=== PATIENT | male | born 1990 | race American Indian/Alaskan Native ===

== ENCOUNTER 2018-11-03 02:33 | Emergency (ER) | payer SELFPAY | END 2018-11-03 07:15 | disposition left against medical advice (07) | LOC: ED 02:33 | DX: Z00.8 Encounter for other general examination (principal); Z53.21 Procedure and treatment not carried out due to patient leaving prior to being seen by health care provider ==

== ENCOUNTER 2018-11-03 05:33 | Emergency (ER) | payer OTHER ==
[2018-11-03 05:45] VITALS: BP 142/94
--- NOTE | 2018-11-03 08:59 | Emergency Department Report ---
ED General Adult HPI - General Chief complaint: Medical Clearance Stated complaint: HYPOTHERMIA Time Seen by Provider: 11/03/18 08:22 Source: patient Mode of arrival: Ambulatory Limitations: No Limitations - History of Present Illness Initial comments: This is a 28-year-old male nontoxic, well nourished in appearance, no acute signs of distress presents to the ED with c/o of "hyperthermia". P atient stated that he was outside and feels like his temperature is significantly decreased. Patient denies any psychosis, hearing voices, confusion, lethargic, chest pain, shortness of breath, headache, stiff neck, numbness, tingling. Patient denies any suicidal or homicidal ideation. Patient denies any drug allergies significant past medical history. Radiation: non-radiation Severity scale (0 -10): 0 Improves with: none Worsens with: none Associated Symptoms: denies other symptoms. denies: confusion, chest pain, cough, diaphoresis, fever/chills, headaches, loss of appetite, malaise, nausea/vomiting, rash, seizure, shortness of breath, syncope, weakness Treatments Prior to Arrival: none ED Review of Systems ROS: Stated complaint: HYPOTHERMIA Other details as noted in HPI Constitutional: denies: chills, fever Eyes: denies: eye pain, eye discharge, vision change ENT: denies: ear pain, throat pain Respiratory: denies: cough, shortness of breath, wheezing Cardiovascular: denies: chest pain, palpitations Endocrine: no symptoms reported Gastrointestinal: denies: abdominal pain, nausea, diarrhea Genitourinary: denies: urgency, dysuria Musculoskeletal: denies: back pain, joint swelling, arthralgia Skin: denies: rash, lesions Neurological: denies: headache, weakness, paresthesias Psychiatric: denies: anxiety, depression Hematological/Lymphatic: denies: easy bleeding, easy bruising ED Past Medical Hx - Past Medical History Previous Medical History?: No - Surgical History Past Surgical History?: No - Social History Smoking Status: Never Smoker Substance Use Type: None ED Physical Exam - General Limitations: No Limitations General appearance: alert, in no apparent distress - Head Head exam: Present: atraumatic, normocephalic - Eye Eye exam: Present: normal appearance - ENT ENT exam: Present: mucous membranes moist - Neck Neck exam: Present: normal inspection, full ROM. Absent: tenderness, meningismus, lymphadenopathy - Respiratory Respiratory exam: Present: normal lung sounds bilaterally. Absent: respiratory distress - Cardiovascular Cardiovascular Exam: Present: regular rate, normal rhythm. Absent: diastolic murmur - GI/Abdominal GI/Abdominal exam: Present: soft, normal bowel sounds - Rectal Rectal exam: Present: deferred - Extremities Exam Extremities exam: Present: normal inspection, full ROM - Back Exam Back exam: Present: normal inspection, full ROM - Neurological Exam Neurological exam: Present: alert, oriented X3, normal gait - Psychiatric Psychiatric exam: Present: normal affect, normal mood. Absent: depressed, agitated, anxious, flat affect, manic, homicidal ideation, suicidal ideation - Skin Skin exam: Present: warm, dry, intact, normal color. Absent: rash ED Course Vital Signs 11/03/18 05:43 Temperature 97.8 F Pulse Rate 82 Respiratory 18 Rate Blood Pressure 142/94 O2 Sat by Pulse 100 Oximetry - Reevaluation(s) Reevaluation #1: 11/03/18 08:57 Patient is speaking in full sentences with no signs of distress noted. ED Medical Decision Making - Medical Decision Making This is a 28-year-old male who presents with complaint of feeling hypothermia. Upon examination patient is stable. Vital signs are stable. I did order some laboratory work the patient refused. Patient was educated and instructed of my concerns and need for blood work patient refused. Patient had signed out AGAINST MEDICAL ADVICE. Patient was strictly instructed to return to emergency room if symptoms worsen or continue. Patient was given a referral. At time of discharge, the patient does not seem toxic or ill in appearance. No acute signs of distress noted. Patient agrees to discharge treatment plan of care. No further questions noted by the patient. Critical care attestation.: If time is entered above; I have spent that time in minutes in the direct care of this critically ill patient, excluding procedure time. ED Disposition Clinical Impression: Feeling worried Disposition: DC-07 LEFT AGAINST MED ADVICE Is pt being admited?: No Does the pt Need Aspirin: No Condition: Undetermined Additional Instructions: Your condition may be serious as instructed and educated today in the ER but you decided to leave AGAINST MEDICAL ADVICE. It is highly recommended to see a provider [facility] as soon as possible to rule out serious complications such as contractions and other abdominal/pelvic serious medical conditions as was told to you. Follow-up with a primary care doctor in 3-5 days or if symptoms worsen and continue return to emergency room as soon as possible. Referrals: RITA FIGUEROA MD [Primary Care Provider] - 3-5 Days PRIMARY MD JONN [Referring] - 3-5 Days KELIN JOHNSON MD [Staff Physician] - 3-5 Days [facility] [place] [Outside] - 3-5 Days [facility] [Outside] - 3-5 Days
== END 2018-11-03 09:28 | disposition left against medical advice (07) ==
LOC: ED 05:33
DX: R50.9 Fever, unspecified (principal); R45.89 Other symptoms and signs involving emotional state

== ENCOUNTER 2020-06-11 14:42 | Emergency (ER) | payer SELFPAY ==
[2020-06-11] MEDS ORDERED: ONDANSETRON 4 MG ODT TAB PO ONE (15:23)
[2020-06-11] MEDS ORDERED: HYDROcodone/ACETAMINOPHEN 5-325 MG TAB PO ONE (15:23)
[2020-06-11] MEDS ORDERED: HYDROCORTISONE 1% CREAM 28.4GM TP ONE (15:23)
[2020-06-11 15:53] VITALS: BP 139/92
--- NOTE | 2020-06-11 16:29 | Emergency Department Report ---
ED General Adult HPI - General Chief complaint: Psych Stated complaint: ANXIETY Time Seen by Provider: 06/11/20 14:53 Source: EMS Mode of arrival: Ambulatory Limitations: No Limitations - History of Present Illness Initial comments: Chief complaint: "Please take me out of the mental stauffer." HPI: This is a 30-year-old male with history of methamphetamine abuse who presents via EMS for altered mental status. Patient walked to the fire station. He was then transported by EMS. Patient would not provide any history. He was just hold his hands to his ears. He did request EMS to take him to the hospital. Patient did cooperate with my history taking. He had rash on both hands. He feels a spasm sensation in the lower abdomen and groin. Rash: dry hands for several days, unknown new exposures, no fever suprapubic Abdominal/groin pain gradual onset one day ago, no change with movement, no radiation, feels like a dull mild spasm He denies SI/HI/ AV hallucinations. No hx of mental health disorder. Patient last used methamphetamine 2 days ago. -: Gradual, days(s) (Several days) Location: abdomen, left, right, upper extremity Consistency: now resolved Improves with: none Worsens with: none Associated Symptoms: denies other symptoms ED Review of Systems ROS: Stated complaint: ANXIETY Other details as noted in HPI Comment: All other systems reviewed and negative Constitutional: denies: fever, malaise Respiratory: denies: cough, shortness of breath Cardiovascular: denies: chest pain Gastrointestinal: abdominal pain. denies: nausea, vomiting, diarrhea Skin: rash ED Past Medical Hx - Past Medical History Previous Medical History?: No - Surgical History Past Surgical History?: No - Social History Smoking Status: Never Smoker Substance Use Type: Marijuana, Methamphetamines ED Physical Exam - General Limitations: No Limitations General appearance: alert, in no apparent distress, other (Ambulatory no difficulty, patient appears well, he appears comfortable) - Head Head exam: Present: atraumatic, normocephalic - Eye Eye exam: Present: normal appearance - ENT ENT exam: Present: mucous membranes moist - Neck Neck exam: Present: normal inspection, full ROM - Respiratory Respiratory exam: Present: normal lung sounds bilaterally. Absent: respiratory distress, wheezes, rales, stridor - Cardiovascular Cardiovascular Exam: Present: regular rate, normal rhythm, normal heart sounds. Absent: systolic murmur, diastolic murmur, rubs, gallop - GI/Abdominal GI/Abdominal exam: Present: soft, normal bowel sounds. Absent: distended, tenderness, guarding, rebound - Rectal Rectal exam: Present: deferred - Extremities Exam Extremities exam: Present: normal inspection - Neurological Exam Neurological exam: Present: alert, oriented X3 - Psychiatric Psychiatric exam: Present: normal affect, normal mood - Skin Skin exam: Present: warm, dry, intact, normal color, other (Bilateral hands: No rash no lesions). Absent: rash ED Course Vital Signs 06/11/20 15:46 Temperature 98.1 F Pulse Rate 92 H Respiratory 20 Rate Blood Pressure 139/92 [Left] O2 Sat by Pulse 96 Oximetry ED Medical Decision Making - Medical Decision Making 1. Abnormal behavior: Patient did not cooperate with EMS. In the emergency department patient was cooperative. I suspect patient had recent methamphetamine use. He denies suicidal homicidal ideation. Denies auditory visual hallucinations. He is insightful and cooperative. He does not require any further intervention. 2. Hand rash: Mild dryness. I ordered hydrocortisone cream which patient decli jazmyn. 3. Abdominal pain Patient left AGAINST MEDICAL ADVICE prior to further evaluation. He refused lab draw. I do not suspect emergent cause such as appendicitis or UTI. Critical care attestation.: If time is entered above; I have spent that time in minutes in the direct care of this critically ill patient, excluding procedure time. ED Disposition Clinical Impression: Methamphetamine abuse, Rash, Abdominal pain Disposition: DC-07 LEFT AGAINST MED ADVICE Is pt being admited?: No Does the pt Need Aspirin: No Condition: Stable Forms: AMA Form
== END 2020-06-11 16:03 | disposition left against medical advice (07) ==
LOC: ED 14:42
DX: R21 Rash and other nonspecific skin eruption (principal); R10.9 Unspecified abdominal pain
CPT/HCPCS: 99283; A6250